=== PATIENT | female | born 1950 | race Caucasian/White ===

== ENCOUNTER 2017-11-29 08:50 | Day surgery (SDC) | payer OTHER ==
[~2017-11-29] VITALS: Ht 162.6 cm; Wt 58.5 kg
[2017-11-29 09:54] VITALS: BP 142/66
[2017-11-29 14:48] VITALS: BP 117/64
== END 2017-11-29 13:00 | disposition home or self-care (01) ==
LOC: DS 08:50
PROVIDERS: Internal Medicine Gastroenterology
PROC: 0DBE8ZX Excision of Large Intestine, Via Natural or Artificial Opening Endoscopic, Diagnostic (ICD-10-PCS; principal; 2017-11-29 12:30)
DX: R10.9 Unspecified abdominal pain (principal); R63.4 Abnormal weight loss; Z68.20 Body mass index [BMI] 20.0-20.9, adult
CPT/HCPCS: 45378; J1200; J1610; J2250; J2310; J3010; J3490